=== PATIENT | male | born 1935 | race Two or more races ===

== ENCOUNTER 2018-06-28 09:05 | Emergency (ER) | payer OTHER ==
[~2018-06-28] VITALS: Ht 165.1 cm; Wt 84.8 kg
[2018-06-28] MEDS ORDERED: NORVASC2.5 M1 PO (09:11)
[2018-06-28] MEDS ORDERED: HYZAAR 100-12.1 EACH PO (09:11)
[2018-06-28] MEDS ORDERED: VENTOLIN HFA18 GM IH (09:11)
[2018-06-28] MEDS ORDERED: INCRUSE ELLI62.5 MCG IH (09:12)
== END 2018-06-28 13:54 | disposition home or self-care (01) ==
LOC: ER 09:05
DX: K29.60 Other gastritis without bleeding (principal)

== ENCOUNTER 2018-10-23 05:37 | Inpatient (IN) | payer OTHER ==
[~2018-10-23] VITALS: Ht 170.2 cm; Wt 88.0 kg
[~2018-10-23 05:37] MED LIST: HYZAAR 100-12.1 EACH PO; INCRUSE ELLI62.5 MCG IH; NORVASC2.5 M1 PO; VENTOLIN HFA18 GM IH
--- NOTE | 2018-10-23 06:16 | NUR ---
SE RECIBE PACIENTE ALERTA Y ORIENTADO X3 ACOMPANADO CON FAMILIAR REFIRIENDO DOLOR DE PECHO DESDE LA 0400AM, EN CALIDAD DE PUNZADA, CUANDO RESPIRA, EL DOLOR SE EMPEORA CON EL MOVIMIENTO.
[2018-10-23] MEDS ORDERED: LIPITOR40 MG (06:23)
--- NOTE | 2018-10-23 07:18 | NUR ---
EVALUADO POR EL SE ORIENTA SOBRE TRATAMIENTO MEDICO Y LA UNIDAD CONECTADO A MONITOR CARDIACO, ALERTA, ORIENTADO POR KEIRY. ACOMPANADO POR FAMILIAR. SE LE EXTRAEN MUESTRAS DE MAGDALENA Y SE ENVIAN AL LABORATORIO. SE MANTIENE EN OBSERVACION.
--- NOTE | 2018-10-23 15:07 | NUR ---
SE RECIBE PTE DEL TURNO ANTERIOR,PTE MASCULINO DE 82 YRS,PTE ALERTA X 3, EN ALISHA CPU # 16, CON BARANDAS ELEVADAS POR PRINGLE SEGURIDAD,PTE CONECTADO A MONITOR CARDIACO, H/L EN BRAZO NANI EL CUAL SE OBSERVA PATENTE Y KITA DE EDEMA Y/O ERITEMA EN AREA DE VENOPUNCION. PTE EN ESPERA DE REVALUACION MEDICA, SE OBSERVARAN POR CAMBIOS EN PRINGLE CONDICION DE MEGHANA.
[2018-10-27] MEDS ORDERED: LIPITOR20 MG PO (09:05)
[2018-10-27] MEDS ORDERED: INTESTINEX680 M1 PO (09:05)
[2018-10-27] MEDS ORDERED: HYZAAR 100-12.1 EACH PO (09:05)
[2018-10-27] MEDS ORDERED: NORVASC2.5 M1 PO (09:05)
[2018-10-27] MEDS ORDERED: DOXYCYCLINE HY100 M2 PO (09:05)
== END 2018-10-27 13:01 | disposition home or self-care (01) | DRG 195 ==
LOC: ER 05:37 → SEC-K 20:59 → MEDJ 23:36
PROVIDERS: ADMIT Internal Medicine
PROC: BW24ZZZ Computerized Tomography (CT Scan) of Chest and Abdomen (ICD-10-PCS; principal; 2018-10-24)
DX: J18.1 Lobar pneumonia, unspecified organism (principal); R09.02 Hypoxemia; J44.9 Chronic obstructive pulmonary disease, unspecified; F17.210 Nicotine dependence, cigarettes, uncomplicated; I10 Essential (primary) hypertension; E78.49 Other hyperlipidemia; E55.9 Vitamin D deficiency, unspecified